=== PATIENT | male | born 1935 | race American Indian/Alaskan Native ===

== ENCOUNTER 2020-03-31 11:57 | Inpatient (IN) | payer MEDICARE, OTHER ==
[2020-03-31] MEDS ORDERED: ASPIRIN 325 MG TAB PO ONE (12:13)
[2020-03-31 12:44] LABS: Basophils # (Auto) 0.1 K/mm3 (0.0-0.1); Eosinophils # (Auto) 0.1 K/mm3 (0.0-0.4); Eosinophils % (Auto) 2.1 % (0.0-4.3); Hematocrit 34.4 % (35.5-45.6); Hemoglobin 11.3 gm/dl (11.8-15.2); Lymphocytes # (Auto) 1.1 K/mm3 (1.2-5.4); Lymphocytes % (Auto) 16.2 % (13.4-35.0); Mean Corpuscular HGB Conc 33 % (32-34); Mean Corpuscular Volume 88 fl (84-94); Monocytes # (Auto) 0.6 K/mm3 (0.0-0.8); Monocytes % (Auto) 8.1 % (0.0-7.3); Red Blood Count 3.89 M/mm3 (3.65-5.03); Red Cell Distribution Width 14.8 % (13.2-15.2)
--- NOTE | 2020-03-31 12:51 | XRay Report ---
CHEST 2 VIEWS INDICATION / CLINICAL INFORMATION: Chest Pain. COMPARISON: None available. FINDINGS: SUPPORT DEVICES: None. HEART / MEDIASTINUM: Normal heart size. Previous median sternotomy and CABG. LUNGS / PLEURA: Hazy right middle and right lower lobe parenchymal opacification. No pneumothorax. ADDITIONAL FINDINGS: No significant additional findings. IMPRESSION: 1. Hazy right middle and right lower lobe parenchymal opacification concerning for probable developin g infectious process. Signer Name: Jasper Lewis MD Signed: 03/31/2020 12:47 PM Workstation Name: [id number]
[2020-03-31 12:59] LABS: Platelet Count 108 K/mm3 (140-440)
[2020-03-31 13:06] LABS: BUN/Creatinine Ratio 18; Blood Urea Nitrogen 18 mg/dL (9-20); Hemolysis Index 5
[2020-03-31] MEDS ORDERED: FUROSEMIDE 20 MG/2 ML INJ IV ONE (16:38)
[2020-03-31] MEDS ORDERED: IPRATROPIUM/ALBUTEROL SULFATE 3 ML AMPUL.NEB IH ONE (16:38)
--- NOTE | 2020-03-31 16:38 | Emergency Department Report ---
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 Mayela Ortiz at [facility], for an exacerbation of congestive heart failure. The patient has been having shortness of breath that worsens with any exertion and he has been having some orthopnea. The dyspnea with exertion is even apparent in the patient's walk from the waiting room to his gurney in room 21. He has a past medical history of CHF, CVA, coronary artery disease with previous CABG. Patient complains of some intermittent chest pains and lower extremity swelling. He denies any fever, nausea, vomiting. No recent travel or sick contacts at home. ED Past Medical Hx - Past Medical History Previous Medical History?: Yes Hx CVA: Yes Hx Congestive Heart Failure: Yes - Surgical History Past Surgical History?: Yes Hx Open Heart Surgery: Yes ED Review of Systems ROS: Stated complaint: FLUID ON HEART/DIRECT ADMIT PER DR. HURST/TACHO Other details as noted in HPI Comment: All other systems reviewed and negative Constitutional: denies: chills, fever Eyes: denies: eye pain, vision change ENT: denies: ear pain, throat pain Respiratory: orthopnea, shortness of breath, SOB with exertion Cardiovascular: chest pain, edema Gastrointestinal: denies: abdominal pain, vomiting Genitourinary: denies: dysuria, discharge Musculoskeletal: denies: back pain, arthralgia Skin: denies: rash, lesions Neurological: denies: headache, weakness Physical Exam - Physical Exam Vital Signs: Vital Signs 03/31/20 12:12 Temperature 97.6 F Pulse Rate 95 H Respiratory 16 Rate Blood Pressure 125/68 O2 Sat by Pulse 99 Oximetry Physical Exam: GENERAL: The patient is well-developed well-nourished. HENT: Normocephalic. Atraumatic. Patient has moist mucous membranes. EYES: Extraocular motions are intact. NECK: Supple. Trachea is midline. CHEST/LUNGS: Coarse breath sounds. No tachypnea accessory muscle use. There is no respiratory distress noted. HEART/CARDIOVASCULAR: Regular. There is no tachycardia. There is no murmur. ABDOMEN: Abdomen is soft, nontender. Patient has normal bowel sounds. There is no abdominal distention. SKIN: 1-2+ pitting edema to the bilateral lower extremities from the knees distally. NEURO: The patient is awake, alert, and oriented. The patient is cooperative. Normal speech. MUSCULOSKELETAL: There is no tenderness or deformity. ED Course Vital Signs 03/31/20 12:12 Temperature 97.6 F Pulse Rate 95 H Respiratory 16 Rate Blood Pressure 125/68 O2 Sat by Pulse 99 Oximetry - Reevaluation(s) Reevaluation #1: 03/31/20 18:14 Lab Results 03/31/20 03/31/20 03/31/20 Range/Units 12:29 12:29 15:12 WBC 6.8 (4.5-11.0) K/mm3 RBC 3.89 (3.65-5.03) M/mm3 Hgb 11.3 L (11.8-15.2) gm/dl Hct 34.4 L (35.5-45.6) % MCV 88 (84-94) fl MCH 29 (28-32) pg MCHC 33 (32-34) % RDW 14.8 (13.2-15.2) % Plt Count 108 L (140-440) K/mm3 Lymph % (Auto) 16.2 (13.4-35.0) % [place] % (Auto) 8.1 H (0.0-7.3) % Eos % (Auto) 2.1 (0.0-4.3) % Baso % (Auto) 1.0 (0.0-1.8) % Lymph # (Auto) 1.1 L (1.2-5.4) K/mm3 [place] # (Auto) 0.6 (0.0-0.8) K/mm3 Eos # (Auto) 0.1 (0.0-0.4) K/mm3 Baso # (Auto) 0.1 (0.0-0.1) K/mm3 Seg Neutrophils % 72.6 H (40.0-70.0) % Seg Neutrophils # 5.0 (1.8-7.7) K/mm3 Sodium 144 (137-145) mmol/L Potassium 3.6 (3.6-5.0) mmol/L Chloride 106.8 (98-107) mmol/L Carbon Dioxide 23 (22-30) mmol/L Anion Gap 18 mmol/L BUN 18 (9-20) mg/dL Creatinine 1.0 (0.8-1.3) mg/dL Estimated GFR > 60 ml/min BUN/Creatinine Ratio 18 % Glucose 81 (75-100) mg/dL Calcium 9.0 (8.4-10.2) mg/dL Troponin T < 0.010 < 0.010 (0.00-0.029) ng/mL NT-Pro-B Natriuret Pep 7345 H (0-900) pg/mL ED Medical Decision Making - Lab Data Result diagrams: 03/31/20 12:29 03/31/20 12:29 - EKG Data -: EKG Interpreted by Me EKG shows normal: sinus rhythm (PVCs), axis, intervals, QRS complexes, ST-T waves (Flattening of T waves to the inferior and lateral leads) Rate: normal - EKG Data When compared to previous EKG there are: previous EKG unavailable Interpretation: other (Sinus rhythm with PVCs, normal axis, normal intervals, flattening of the T waves to the inferior and lateral leads) - Radiology Data Radiology results: report reviewed, image reviewed interpreted by me: Chest x-ray shows mild cardiomegaly. Sternotomy wire is apparent. There is some hazy bilateral lower lung opacities that could be fluid versus infiltrates. CHEST 2 VIEWS INDICATION / CLINICAL INFORMATION: Chest Pain. COMPARISON: None available. FINDINGS: SUPPORT DEVICES: None. HEART / MEDIASTINUM: Normal heart size. Previous median sternotomy and CABG. LUNGS / PLEURA: Hazy right middle and right lower lobe parenchymal opacification. No pneumothorax. ADDITIONAL FINDINGS: No significant additional findings. IMPRESSION: 1. Hazy right middle and right lower lobe parenchymal opacification concerning for probable developing infectious process. - Medical Decision Making Patient was sent in from his robotic maintenance technician office for a CHF exacerbation. Chest x-ray does show some haziness to the bilateral basilar lung herrera. Negative troponins x2 but he has an elevated BNP greater than 7000. EKG does not have any morphology consistent with ST elevation myocardial infarction. Vital signs have been reassuring thus far including being afebrile. The patient was given a breathing treatment and a dose of IV Lasix. He will be admitted to the hospital for further evaluation and treatment was accepted for admission by the hospitalist, Dr. Roberts. Critical Care Time: No Critical care attestation.: If time is entered above; I have spent that time in minutes in the direct care of this critically ill patient, excluding procedure time. ED Disposition Clinical Impression: CHF (congestive heart failure) Qualifiers: Heart failure type: systolic Heart failure chronicity: acute on chronic Wale lified Code(s): I50.23 - Acute on chronic systolic (congestive) heart failure Disposition: OP ADMIT IP TO THIS HOSP Is pt being admited?: Yes Condition: Fair Time of Disposition: 18:15 HEART Score - HEART Score History: Slightly suspicious EKG: Normal Age: > 65 Risk factors: > 3 risk factors or hx of atherosclerotic disease Troponin: Troponin T < 0.010 ng/mL (0.00-0.029) 03/31/20 15:12 Troponin: < normal limit HEART Score: 4 - Critical Actions Critical Actions: 4-6 pts:12-16.6% risk of adverse cardiac event. Should be admitted
--- NOTE | 2020-03-31 17:26 | History and Physical Report ---
History of Present Illness Chief complaint: I am short of breath History of present illness: 84 YO Male with CHF, CVA, CAD S/P CABG presents to ED for evaluation. Patient states that he has experienced shortness of breath over the past 1 week with persistently worsening symptoms over the same timeframe. Patient acknowledges orthopnea, paroxysmal nocturnal dyspnea, lower extremity edema, decreased exercise tolerance, subjective weight gain, as well as dyspnea with meals. Patient was seen and evaluated in his revenue cycle analyst office and was instructed to seek further care at [facility]. Patient transported to [facility] via private vehicle for further care and evaluation. Patient seen and evaluated in the emergency department. Lab and image studies reviewed. Patient found to have laboratory findings as well as clinical findings consistent with CHF decompensation. Patient initiated on CHF protocol and admitted to telemetry. Patient treated with supplemental oxygen, diuresis with Lasix therapy, and supportive care with mild improvement in symptoms. Cardiology team consulted in ED. Patient denies fever, chills, chest pain, palpitations, productive cough, skin rash, recent ill contacts, or known exposure to COVID-19. All medication listed at time of admission has been reconciled. No prior admission for review. Advanced care planning conducted in the emergency department. Past History Past Medical History: CAD, heart failure, stroke Past Surgical History: CABG Social history: single. denies: smoking, alcohol abuse, prescription drug abuse Family history: diabetes, hypertension Medications and Allergies Allergies Allergy/AdvReac Type Severity Reaction Status Date / Time No Known Allergies Allergy Unverified 03/31/20 12:11 Review of Systems Constitutional: weight gain, no fever, no chills Ears, nose, mouth and throat: no ear pain, no ear discharge, no tinnitis, no dec reased hearing, no nasal congestion Cardiovascular: orthopnea, edema, shortness of breath, dyspnea on exertion, paroxysmal nocturnal dyspnea, leg edema, decreased exercise tolerance, no chest pain, no palpitations, no rapid/irregular heart beat Respiratory: no cough, no cough with sputum, no hemoptysis, no dyspnea on exertion Gastrointestinal: no nausea, no vomiting, no constipation, no change in bowel habits, no hematemesis Genitourinary Male: no hematuria, no flank pain, no urinary frequency, no urinary hesitancy, no nocturia Rectal: no pain, no incontinence, no bleeding Musculoskeletal: no neck stiffness, no shooting arm pain, no arm numbn ess/tingling, no low back pain, no leg numbness/tingling Integumentary: no rash, no pruritis, no sores, no wounds, no jaundice, no boils Neurological: no head injury, no paralysis, no weakness, no numbness, no tingling, no seizures, no syncope Psychiatric: no anxiety, no memory loss, no change in sleep habits, no hypersomnia, no disorientation Endocrine: no cold intolerance, no excessive thirst, no polyuria, no nocturia, no excessive sweating, no flushing Hematologic/Lymphatic: no easy bruising, no lymphedema Allergic/Immunologic: no urticaria, no allergic rhinitis, no wheezing, no anaphylaxis, no angioedema Exam - Constitutional Vitals: Temp Pulse Resp BP Pulse Ox 97.6 F 95 H 16 125/68 99 03/31/20 12:12 03/31/20 12:12 03/31/20 12:12 03/31/20 12:12 03/31/20 12:12 General appearance: Present: mild distress - EENT Eyes: Present: PERRL ENT: hearing intact, clear oral mucosa - Neck Neck: Present: supple, normal ROM - Respiratory Respiratory effort: normal Respiratory: bilateral: diminished, rhonchi - Cardiovascular Heart Sounds: Present: S1 & S2. Absent: rub, click - Extremities Extremities: pulses symmetrical Extremity abnormal: edema Peripheral Pulses: within normal limits - Abdominal General gastrointestinal: Present: soft, non-tender, non-distended, normal bowel sounds Male genitourinary: Present: normal - Integumentary Integumentary: Present: clear, warm, dry - Musculoskeletal Musculoskeletal: gait normal, strength equal bilaterally - Psychiatric Psychiatric: appropriate mood/affect, intact judgment & insight - Neurologic Neurologic: CNII-XII intact, moves all extremities HEART Score - HEART Score EKG: Normal Age: > 65 Risk factors: > 3 risk factors or hx of atherosclerotic disease Troponin: Troponin T < 0.010 ng/mL (0.00-0.029) 03/31/20 15:12 Troponin: < normal limit - Critical Actions Critical Actions: 4-6 pts:12-16.6% risk of adverse cardiac event. Should be admitted Results - Labs CBC & Chem 7: 03/31/20 12:29 03/31/20 12:29 Labs: Abnormal lab results 03/31/20 03/31/20 Range/Units 12:29 12:29 Hgb 11.3 L (11.8-15.2) gm/dl Hct 34.4 L (35.5-45.6) % Plt Count 108 L (140-440) K/mm3 [place] % (Auto) 8.1 H (0.0-7.3) % Lymph # (Auto) 1.1 L (1.2-5.4) K/mm3 Seg Neutrophils % 72.6 H (40.0-70.0) % NT-Pro-B Natriuret Pep 7345 H (0-900) pg/mL Assessment and Plan - Patient Problems (1) CHF (congestive heart failure) Current Visit: Yes Status: Acute Qualifiers: Heart failure type: systolic Heart failure chronicity: acute on chronic Qualified Code(s): I50.23 - Acute on chronic systolic (congestive) heart failure Plan to address problem: CHF protocol: Admit to telemetry, echocardiogram ordered at time of admission, BNP, pulse oximetry, supplemental oxygen, blood pressure control, afterload reduction, strict I's/O, monitor urine output every shift, daily weight, monitor fluid balance. Diuresis with Lasix therapy. Thyroid panel, magnesium level. (2) CAD (coronary artery disease) Current Visit: Yes Status: Acute Qualifiers: Associated angina: without angina Plan to address problem: Supportive care, risk factor reduction, blood pressure control. (3) Cerebral atherosclerosis Current Visit: Yes Status: Acute Plan to address problem: Supportive care, continue medical management. (4) DVT prophylaxis Current Visit: Yes Status: Acute Plan to address problem: SCD to bilateral lower extremities while in bed, patient is ambulatory (5) Advance care planning Current Visit: Yes Status: Acute Plan to address problem: Disease education conducted, patient is full code, prognosis discussed, patient knowledges understanding and agreement with care plan, +30 minutes.
[2020-03-31] MEDS ORDERED: ONDANSETRON 4 MG/2 ML INJ IV PRN (17:27)
[2020-03-31] MEDS ORDERED: ALBUTEROL 2.5 MG/3 ML NEBU IH PRN (17:27)
[2020-03-31] MEDS ORDERED: ACETAMINOPHEN 325 MG TAB PO PRN (17:27)
[2020-03-31] MEDS ORDERED: FUROSEMIDE 20 MG/2 ML INJ ONE (18:12)
[2020-03-31] MEDS: FUROSEMIDE 20 MG/2 ML INJ IV SCH (18:30)
[2020-03-31 19:54] LABS: Free T4 (Free Thyroxine) 1.8 ng/dL (0.76-1.46)
[2020-04-01 06:08] LABS: Blood Urea Nitrogen 16 mg/dL (9-20); Calcium 8.7 mg/dL (8.4-10.2); Hemolysis Index 5
[2020-04-01 06:23] LABS: BUN/Creatinine Ratio 23
[2020-04-01] MEDS: FUROSEMIDE 20 MG/2 ML INJ IV SCH ×2 (06:45→17:34)
--- NOTE | 2020-04-01 10:19 | Progress Note ---
Assessment and Plan (1) CHF (congestive heart failure) Current Visit: Yes Status: Acute Qualifiers: Heart failure type: systolic Heart failure chronicity: acute on chronic Qualified Code(s): I50.23 - Acute on chronic systolic (congestive) heart failure Plan to address problem: continue cardio-protective measures-per CHF protocol supplemental oxygen, monitor bp control, strict I's/O, daily weight, ASA, and Diuresis with Lasix Thyroid panel, magnesium level. ECHO-f/u with result newspaper editor consult (2) CAD (coronary artery disease) Current Visit: Yes Status: Acute Qualifiers: Associated angina: without angina Plan to address problem: Supportive care, risk factor reduction, blood pressure control. (3) Cerebral atherosclerosis Current Visit: Yes Status: Acute Plan to address problem: Supportive care, continue medical management. (4) DVT prophylaxis Current Visit: Yes Status: Acute Plan to address problem: SCD to bilateral lower extremities while in bed, patient is ambulatory (5) Advance care planning Current Visit: Yes Status: Acute Plan to address problem: Disease education conducted, patient is full code, prognosis discussed, patient knowledges understanding and agreement with care plan, +30 minutes. - Patient Problems (1) Hypokalemia Current Visit: Yes Status: Acute Plan to address problem: Replete potassium 3.1 today daily potassium supplement-patient on lasix Monitor potassium level and replete if needed Mag level Subjective Date of service: 04/01/20 Principal diagnosis: CHF Interval history: Patient seen at bedside and was eating lunch. He denies chest pain and shortness of breath. Noted bilateral leg edema Reviewed lab, mar, and v/s. patient has low potassium-replaced patient on duiuretic with lasxi Objective - Constitutional Vitals: Vital Signs - 12hr 03/31/20 03/31/20 03/31/20 22:21 22:31 22:41 Temperature Pulse Rate 106 H 105 H 103 H Respiratory 12 13 25 H Rate Blood Pressure 124/65 124/65 124/65 O2 Sat by Pulse 100 100 100 Oximetry 03/31/20 04/01/20 04/01/20 23:26 01:35 01:43 Temperature 97.6 F Pulse Rate 109 H 93 H Respiratory 22 22 Rate Blood Pressure 128/75 O2 Sat by Pulse 100 Oximetry 04/01/20 04/01/20 04:31 08:33 Temperature 98.3 F Pulse Rate 89 Respiratory 20 20 Rate Blood Pressure 109/72 O2 Sat by Pulse 96 Oximetry General appearance: Present: no acute distress, well-nourished - EENT Eyes: PERRL, EOM intact ENT: hearing intact, clear oral mucosa Ears: bilateral: normal - Neck Neck: supple, normal ROM - Respiratory Respiratory effort: normal Respiratory: bilateral: CTA - Breasts Breasts: normal - Cardiovascular Heart rate: 89 Rhythm: regular Heart Sounds: Present: S1 & S2. Absent: gallop, rub Extremities: pulses intact, normal color, Full ROM, abnormal (Bilateral leg edema) - Gastrointestinal General gastrointestinal: Present: soft, non-tender, non-distended, normal bowel sounds - Genitourinary Male genitourinary: normal - Integumentary Integumentary: clear, warm, dry - Musculoskeletal Musculoskeletal: 1, strength equal bilaterally - Neurologic Neurologic: moves all extremities - Psychiatric Psychiatric: memory intact, appropriate mood/affect, intact judgment & insight - Labs CBC & Chem 7: 03/31/20 12:29 04/01/20 05:11 Labs: Abnormal lab results 03/31/20 03/31/20 03/31/20 Range/Units 12:29 12:29 18:57 Hgb 11.3 L (11.8-15.2) gm/dl Hct 34.4 L (35.5-45.6) % Plt Count 108 L (140-440) K/mm3 [place] % (Auto) 8.1 H (0.0-7.3) % Lymph # (Auto) 1.1 L (1.2-5.4) K/mm3 Seg Neutrophils % 72.6 H (40.0-70.0) % Potassium (3.6-5.0) mmol/L Creatinine (0.8-1.3) mg/dL NT-Pro-B Natriuret Pep 7345 H (0-900) pg/mL Free T4 1.80 H (0.76-1.46) ng/dL 04/01/20 Range/Units 05:11 Hgb (11.8-15.2) gm/dl Hct (35.5-45.6) % Plt Count (140-440) K/mm3 [place] % (Auto) (0.0-7.3) % Lymph # (Auto) (1.2-5.4) K/mm3 Seg Neutrophils % (40.0-70.0) % Potassium 3.1 L (3.6-5.0) mmol/L Creatinine 0.7 L (0.8-1.3) mg/dL NT-Pro-B Natriuret Pep (0-900) pg/mL Free T4 (0.76-1.46) ng/dL HEART Score - HEART Score EKG: Normal Age: > 65 Risk factors: > 3 risk factors or hx of atherosclerotic disease Troponin: Troponin T < 0.010 ng/mL (0.00-0.029) 03/31/20 18:57 Troponin: < normal limit - Critical Actions Critical Actions: 4-6 pts:12-16.6% risk of adverse cardiac event. Should be admitted
[2020-04-01] MEDS ORDERED: POTASSIUM CHLORIDE ER 20 MEQ TAB PO ONE (11:00)
--- NOTE | 2020-04-01 17:02 | Consultation ---
History of Present Illness Consult date: 04/01/20 Requesting physician: FROILAN NEWTON Consult reason: congestive heart failure History of present illness: Pt is an 84 y.o. AA male who is followed in our office by Dr. Ortiz. He was sent by Dr. Ortiz for further eval of suspected HF exacerbation. Pt has a known hx of ICMP and chronic HFrEF (currently on Torsemide 20mg daily as an outpatient). Of note, pt is a poor historian due to residual deficits secondary to CVA, and thus some HPI obtained from chart. Pt reports SOB/DURAND and "issues with urination." He also reports orthopnea and BLE swelling. No additional cardiac complaints. No recent fever/chills. BNP elevated at admission. CXR reveals mild pulmonary edema and RLL opacification. Echo 03/28/2020 - EF 15%, grade III diastolic dysfxn, severe MR, severe TR. Past History Past Medical History: CAD, DVT, heart failure, hypertension, hyperlipidemia, hypothyroidism, stroke Past Surgical History: CABG Social history: denies: smoking, alcohol abuse Family history: hypertension Medications and Allergies Allergies Allergy/AdvReac Type Severity Reaction Status Date / Time lactose AdvReac Dizziness Verified 04/01/20 04:27 Home Medications Medication Instructions Recorded Confirmed Last Taken Type Apixaban [Eliquis] 5 mg PO BID 04/01/20 04/01/20 Unknown History AtorvaSTATin [Lipitor] 40 mg PO QHS 04/01/20 04/01/20 Unknown History Doxazosin Mesylate [Cardura] 8 mg PO DAILY 04/01/20 04/01/20 Unknown History Metoprolol Xl [Metoprolol 50 mg PO QDAY 04/01/20 04/01/20 Unknown History SUCCINATE ER TAB] lisinopriL [Zestril TAB] 40 mg PO QDAY 04/01/20 04/01/20 Unknown History Active Meds: Active Medications Acetaminophen (Tylenol) 650 mg PO Q4H PRN PRN Reason: Pain MILD(1-3)/Fever >100.5/RAMIREZ Last Admin: 04/01/20 15:10 Dose: 650 mg Documented by: Albuterol (Proventil) 2.5 mg IH Q4HRT PRN PRN Reason: Shortness Of Breath Furosemide (Lasix) 20 mg IV BID@0600,1800 ERIC Last Admin: 04/01/20 06:45 Dose: 20 mg Documented by: Ondansetron HCl (Zofran) 4 mg IV Q8H PRN PRN Reason: Nausea And Vomiting Potassium Chloride (K-Dur) 20 meq PO QDAY [facility] Sodium Chloride (Sodium Chloride Flush Syringe 10 Ml) 10 ml IV BID [facility] Last Admin: 04/01/20 11:28 Dose: 10 ml Documented by: Sodium Chloride (Sodium Chloride Flush Syringe 10 Ml) 10 ml IV PRN PRN PRN Reason: LINE FLUSH Review of Systems Constitutional: no fever, no chills Ears, nose, mouth and throat: no nasal congestion, no sore throat Cardiovascular: orthopnea, edema, shortness of breath, dyspnea on exertion, no chest pain, no syncope, no lightheadedness Respiratory: shortness of breath, dyspnea on exertion, no cough Gastrointestinal: no abdominal pain, no nausea, no vomiting Genitourinary Male: dysuria, no flank pain Musculoskeletal: no neck stiffness, no neck pain, no myalgias Integumentary: no rash, no wounds Neurological: no paralysis, no weakness, no parathesias, no numbness, no tingling, no seizures, no syncope, no vertigo, no headaches Endocrine: no cold intolerance, no heat intolerance, no polydipsia, no polyuria Hematologic/Lymphatic: no easy bruising, no easy bleeding Allergic/Immunologic: no urticaria Physical Examination Last Vital Signs Temp 98.2 F 04/01/20 11:27 Pulse 91 H 04/01/20 11:27 Resp 18 04/01/20 11:27 BP 100/54 04/01/20 11:27 Pulse Ox 99 04/01/20 11:27 General appearance: no acute distress HEENT: Positive: EOMI, Normocephaly, Mucus Membranes Moist Neck: Positive: neck supple, trachea midline Cardiac: Positive: Reg Rate and Rhythm, S1/S2 Lungs: Positive: clear to auscultation Neuro: Positive: Grossly Intact Abdomen: Positive: Soft, Active Bowel Sounds. Negative: Tender Skin: Negative: Rash Musculoskeletal: No Pain Extremities: Present: upper extr. pulses, lower extr. pulses, +2 Edema (BLE) Results 03/31/20 12:29 04/01/20 05:11 Comprehensive Metabolic Panel 04/01/20 Range/Units 05:11 Sodium 144 (137-145) mmol/L Potassium 3.1 L (3.6-5.0) mmol/L Chloride 106.5 (98-107) mmol/L Carbon Dioxide 24 (22-30) mmol/L BUN 16 (9-20) mg/dL Creatinine 0.7 L (0.8-1.3) mg/dL Glucose 97 (75-100) mg/dL Calcium 8.7 (8.4-10.2) mg/dL - Imaging and Cardiology Echo: report reviewed (03/28/2020 - EF 15%, grade III diastolic dysfxn, severe MR, severe TR) EKG: report reviewed, image reviewed - EKG Interpretation EKG: no acute changes EKG interpretations - Telemetry EKG Rhythm: Sinus Rhythm - EKG Sinus rhythms and dysrhythmias: sinus rhythm Ventricular dysrhythmias: ventricular premature com Repolarization changes or abnormalities: nonspecific abnormality, ST segment, and/or T wave Assessment and Plan Cont IV Lasix 20mg BID with strict I/Os. Closely monitor renal indices. K repletion underway. Hold home Toprol and Lisinopril for now in the setting of borderline BPs. Resume ASA and statin. Will revisit possible ICD as an outpatient. Pt seen in conjunction with Dr. Mcbride, who agrees with the assessment and plan of care. - Patient Problems (1) Acute on chronic HFrEF (heart failure with reduced ejection fraction) Current Visit: Yes Status: Acute (2) Hypokalemia Current Visit: Yes Status: Acute (3) Ischemic cardiomyopathy Current Visit: Yes Status: Chronic (4) Severe mitral regurgitation Current Visit: Yes Status: Chronic (5) Severe tricuspid regurgitation Current Visit: Yes Status: Chronic (6) CAD (coronary artery disease) Current Visit: Yes Status: Chronic Qualifiers: Associated angina: without angina (7) S/P CABG (coronary artery bypass graft) Current Visit: Yes Status: Chronic (8) HTN (hypertension) Current Visit: Yes Status: Chronic Qualifiers: Hypertension type: essential hypertension Qualified Code(s): I10 - Essential (primary) hypertension (9) HLD (hyperlipidemia) Current Visit: Yes Status: Chronic Qualifiers: Hyperlipidemia type: mixed hyperlipidemia Qualified Code(s): E78.2 - Mixed hyperlipidemia (10) Hypothyroidism Current Visit: Yes Status: Chronic (11) H/O: CVA (cerebrovascular accident) Current Visit: Yes Status: Chronic (12) H/O deep venous thrombosis Current Visit: Yes Status: Chronic Plan to address problem: on Ramos
[2020-04-01] MEDS: APIXABAN 5 MG TAB PO SCH (21:57)
[2020-04-01 22:48] LABS: Bilirubin,Urine NEG (Negative); Blood,Urine LG (Negative); Color,Urine Straw (Yellow); Mucus,Urine FEW /HPF; Protein,Urine <15 mg/dL mg/dL (Negative); Urobilinogen,Urine < 2.0 mg/dL (<2.0)
[2020-04-01 22:53] LABS: RBC,Urine > 182.0 /HPF (0.0-6.0)
[2020-04-02] MEDS: cefTRIAXone/NS 1 GM/50 ML 1 GM/50 ML BAG IV SCH ×2 (01:36→09:25)
[2020-04-02] MEDS: FUROSEMIDE 20 MG/2 ML INJ IV SCH ×2 (06:37→17:23)
[2020-04-02] MEDS: POTASSIUM CHLORIDE ER 20 MEQ TAB PO SCH (09:25)
[2020-04-02] MEDS: APIXABAN 5 MG TAB PO SCH ×2 (09:25→22:41)
[2020-04-02] MEDS: ASPIRIN 81 MG TAB CHEW PO SCH (09:25)
--- NOTE | 2020-04-02 09:45 | Progress Note ---
Assessment and Plan (1) CHF (congestive heart failure) Current Visit: Yes Status: Acute Qualifiers: Heart failure type: systolic Heart failure chronicity: acute on chronic Qualified Code(s): I50.23 - Acute on chronic systolic (congestive) heart failure Plan to address problem: continue cardio-protective measures-per CHF protocol ASA, statin, strict I's/O, daily weight, and Diuresis ECHO-f/u with result steam presser consult-input appreciated Hold BB and lisipril due to BP level (2) CAD (coronary artery disease) Current Visit: Yes Status: Acute Qualifiers: Associated angina: without angina Plan to address problem: Supportive care, risk factor reduction, blood pressure control. Continue statin (3) Cerebral atherosclerosis Current Visit: Yes Status: Acute Plan to address problem: Supportive care, continue medical management. (4) DVT prophylaxis Current Visit: Yes Status: Acute Plan to address problem: SCD to bilateral lower extremities while in bed, patient is ambulatory (5) Advance care planning Current Visit: Yes Status: Acute Plan to address problem: Disease education conducted, patient is full code, prognosis discussed, patient knowledges understanding and agreement with care plan, +30 minutes. - Patient Problems (1) Hypokalemia Current Visit: Yes Status: Acute Plan to address problem: Replete potassium 3.1 today daily potassium supplement-patient on lasix Monitor potassium level and replete if needed am lab bmp and Mag level (2) UTI (urinary tract infection) Current Visit: Yes Status: Acute Plan to address problem: Continue IV empiric antibiotics Urine culture-f/u with result Subjective Date of service: 04/02/20 Principal diagnosis: CHF Interval history: Patient seen at bedside He denies chest pain and shortness of breath. Has bilateral leg edema Reviewed lab, mar, and v/s. patient has low potassium-replaced patient on duiuretic with lasxi Reviwed steam presser note-advised to Cont IV Lasix 20mg BID with strict I/Os. Hold home Toprol and Lisinopril Continue ASA and statin. CXR reveals mild pulmonary edema and RLL opacification. Echo 03/28/2020 - EF 15%, grade III diastolic dysfxn, severe MR, severe TR. US shows elevated WBC-pt started IV abx D/c pending steam presser clearance Objective - Constitutional Vitals: Vital Signs - 12hr 1004/01/20 04/02/20 22:00 23:35 01:00 Temperature 97.9 F Pulse Rate 99 H 120 H Respiratory 18 18 Rate Blood Pressure 103/59 O2 Sat by Pulse 100 Oximetry 04/02/20 04/02/20 04/02/20 03:57 07:42 08:12 Temperature 98.7 F 97.6 F Pulse Rate 101 H 113 H Respiratory 18 18 18 Rate Blood Pressure 126/81 125/83 O2 Sat by Pulse 97 100 Oximetry General appearance: Present: no acute distress, well-nourished - EENT Eyes: PERRL, EOM intact ENT: hearing intact, clear oral mucosa Ears: bilateral: normal - Neck Neck: supple, normal ROM - Respiratory Respiratory effort: normal Respiratory: bilateral: CTA - Breasts Breasts: normal - Cardiovascular Rhythm: regular Heart Sounds: Present: S1 & S2. Absent: gallop, rub Extremities: pulses intact, No edema, normal color, Full ROM Extremity abnormal: edema (Bilateral leg edema) - Gastrointestinal General gastrointestinal: Present: soft, non-tender, non-distended, normal bowel sounds - Genitourinary Male genitourinary: normal - Integumentary Integumentary: clear, warm, dry - Musculoskeletal Musculoskeletal: 1, strength equal bilaterally - Neurologic Neurologic: moves all extremities - Psychiatric Psychiatric: memory intact, appropriate mood/affect, intact judgment & insight - Allied health notes Allied health notes reviewed: nursing - Labs CBC & Chem 7: 03/31/20 12:29 04/02/20 10:03 Labs: Abnormal lab results 04/01/20 Range/Units 22:00 Urine WBC (Auto) 86.0 H (0.0-6.0) /HPF HEART Score - HEART Score EKG: Normal Age: > 65 Risk factors: > 3 risk factors or hx of atherosclerotic disease Troponin: Troponin T < 0.010 ng/mL (0.00-0.029) 03/31/20 18:57 Troponin: < normal limit - Critical Actions Critical Actions: 4-6 pts:12-16.6% risk of adverse cardiac event. Should be admitted
[2020-04-02 10:45] LABS: Blood Urea Nitrogen 12 mg/dL (9-20); Hemolysis Index 19
[2020-04-02 10:49] LABS: BUN/Creatinine Ratio 17
[2020-04-02] MEDS: METOPROLOL SUCCINATE XL 50 MG TAB PO SCH (16:08)
--- NOTE | 2020-04-02 19:39 | Progress Note ---
Assessment and Plan Mgmt of urinary issues per Primary. Continue IV Lasix 20mg BID with strict I/Os. Closely monitor renal indices. Will resume home Toprol. Continue to hold Lisinopril for now in the setting of borderline BPs. Tele monitoring. Continue other present cardiac mgmt. Plan to revisit possible ICD as an outpatient. Pt seen in conjunction with Dr. Mcbride, who agrees with the assessment and plan of care. - Patient Problems (1) Acute on chronic HFrEF (heart failure with reduced ejection fraction) Current Visit: Yes Status: Acute (2) Paroxysmal SVT (supraventricular tachycardia) Current Visit: Yes Status: Acute (3) Ischemic cardiomyopathy Current Visit: Yes Status: Chronic (4) Severe mitral regurgitation Current Visit: Yes Status: Chronic (5) Severe tricuspid regurgitation Current Visit: Yes Status: Chronic (6) CAD (coronary artery disease) Current Visit: Yes Status: Chronic Qualifiers: Associated angina: without angina (7) S/P CABG (coronary artery bypass graft) Current Visit: Yes Status: Chronic (8) HTN (hypertension) Current Visit: Yes Status: Chronic Qualifiers: Hypertension type: essential hypertension Qualified Code(s): I10 - Essential (primary) hypertension (9) HLD (hyperlipidemia) Current Visit: Yes Status: Chronic Qualifiers: Hyperlipidemia type: mixed hyperlipidemia Qualified Code(s): E78.2 - Mixed hyperlipidemia (10) Hypothyroidism Current Visit: Yes Status: Chronic (11) H/O: CVA (cerebrovascular accident) Current Visit: Yes Status: Chronic (12) H/O deep venous thrombosis Current Visit: Yes Status: Chronic Plan to address problem: on Eliquis Subjective Date of service: 04/02/20 Principal diagnosis: A/C HFrEF Interval history: Pt resting comfortably in bed upon exam. He states he is feeling better; however, c/o pain/burning sensation with urination. No cardiac complaints. Tele reviewed - SR w/brief run of SVT noted. Pt asymptomatic. Objective Last Vital Signs Temp 98.5 F 04/02/20 16:02 Pulse 110 H 04/02/20 17:00 Resp 18 04/02/20 16:02 BP 137/85 04/02/20 16:02 Pulse Ox 90 04/02/20 16:02 - Physical Examination General: No Apparent Distress HEENT: Positive: EOMI, Normocephaly, Mucus Membranes Moist Neck: Positive: neck supple, trachea midline Cardiac: Positive: Reg Rate and Rhythm, S1/S2 Lungs: Positive: Decreased Breath Sounds Neuro: Positive: Grossly Intact Abdomen: Positive: Soft, Active Bowel Sounds. Negative: Tender Skin: Negative: Rash Musculoskeletal: No Pain Extremities: Present: upper extr. pulses, lower extr. pulses, +2 Edema (BLE) - Labs and Meds Comprehensive Metabolic Panel 04/02/20 Range/Units 10:03 Sodium 142 (137-145) mmol/L Potassium 3.7 (3.6-5.0) mmol/L Chloride 103.8 (98-107) mmol/L Carbon Dioxide 26 (22-30) mmol/L BUN 12 (9-20) mg/dL Creatinine 0.7 L (0.8-1.3) mg/dL Glucose 92 (75-100) mg/dL Calcium 9.0 (8.4-10.2) mg/dL - Imaging and Cardiology EKG: report reviewed, image reviewed Echo: report reviewed (03/28/2020 - EF 15%, grade III diastolic dysfxn, severe MR, severe TR) - Telemetry EKG Rhythm: Sinus Rhythm - EKG Sinus rhythms and dysrhythmias: sinus rhythm Ventricular dysrhythmias: ventricular premature com Repolarization changes or abnormalities: nonspecific abnormality, ST segment, and/or T wave
[2020-04-03 05:44] LABS: BUN/Creatinine Ratio 18; Blood Urea Nitrogen 14 mg/dL (9-20); Calcium 8.8 mg/dL (8.4-10.2); Hemolysis Index 8
[2020-04-03] MEDS: FUROSEMIDE 20 MG/2 ML INJ IV SCH ×2 (06:24→18:22)
[2020-04-03] MEDS: POTASSIUM CHLORIDE ER 20 MEQ TAB PO SCH (09:14)
[2020-04-03] MEDS: cefTRIAXone/NS 1 GM/50 ML 1 GM/50 ML BAG IV SCH (09:14)
[2020-04-03] MEDS: APIXABAN 5 MG TAB PO SCH ×2 (09:14→22:22)
[2020-04-03] MEDS: METOPROLOL SUCCINATE XL 50 MG TAB PO SCH (09:14)
[2020-04-03] MEDS: ASPIRIN 81 MG TAB CHEW PO SCH (09:15)
[2020-04-03] MEDS: DIGOXIN 0.5 MG/2 ML INJ IV SCH ×2 (12:52→18:22)
--- NOTE | 2020-04-03 13:38 | Progress Note ---
Assessment and Plan Continue tele monitoring. Will give IV digoxin x 4. Continue Toprol. Will increase BB as tolerated. Home Lisinopril held for now in the setting of borderline BPs - will resume as BP permits. Continue IV Lasix 20mg BID with strict I/Os. Closely monitor renal indices. Continue other present cardiac mgmt. Plan to revisit possible ICD implantation as an outpatient. Pt seen in conjunction with Dr. Trejo, who agrees with the assessment and plan of care. - Patient Problems (1) Acute on chronic HFrEF (heart failure with reduced ejection fraction) Current Visit: Yes Status: Acute (2) Paroxysmal SVT (supraventricular tachycardia) Current Visit: Yes Status: Acute Plan to address problem: Asymptomatic (3) Ischemic cardiomyopathy Current Visit: Yes Status: Chronic (4) Severe mitral regurgitation Current Visit: Yes Status: Chronic (5) Severe tricuspid regurgitation Current Visit: Yes Status: Chronic (6) CAD (coronary artery disease) Current Visit: Yes Status: Chronic Qualifiers: Associated angina: without angina (7) S/P CABG (coronary artery bypass graft) Current Visit: Yes Status: Chronic (8) HTN (hypertension) Current Visit: Yes Status: Chronic Qualifiers: Hypertension type: essential hypertension Qualified Code(s): I10 - Essential (primary) hypertension (9) HLD (hyperlipidemia) Current Visit: Yes Status: Chronic Qualifiers: Hyperlipidemia type: mixed hyperlipidemia Qualified Code(s): E78.2 - Mixed hyperlipidemia (10) Hypothyroidism Current Visit: Yes Status: Chronic (11) Goiter Current Visit: Yes Status: Suspected Plan to address problem: Plan for surgical intervention as an outpatient (12) H/O: CVA (cerebrovascular accident) Current Visit: Yes Status: Chronic (13) H/O deep venous thrombosis Current Visit: Yes Status: Chronic Plan to address problem: on Eliquis Subjective Date of service: 04/03/20 Principal diagnosis: A/C HFrEF Interval history: Pt resting comfortably in bed upon exam. He is feeling well today. No cardiac complaints overnight or this AM. Tele reviewed - SR 90s - low 100s, pSVT. Objective Last Vital Signs Temp 97.6 F 04/03/20 11:30 Pulse 99 H 04/03/20 12:52 Resp 20 04/03/20 11:30 BP 108/73 04/03/20 11:30 Pulse Ox 96 04/03/20 11:30 - Physical Examination General: No Apparent Distress HEENT: Positive: EOMI, Normocephaly, Mucus Membranes Moist Neck: Positive: neck supple, trachea midline Cardiac: Positive: Reg Rate and Rhythm, S1/S2 Lungs: Positive: clear to auscultation Neuro: Positive: Grossly Intact Abdomen: Positive: Soft, Active Bowel Sounds. Negative: Tender Skin: Negative: Rash Musculoskeletal: No Pain Extremities: Present: upper extr. pulses, lower extr. pulses, +1 Edema (BLE) - Labs and Meds Comprehensive Metabolic Panel 04/03/20 Range/Units 04:37 Sodium 143 (137-145) mmol/L Potassium 3.6 (3.6-5.0) mmol/L Chloride 103.8 (98-107) mmol/L Carbon Dioxide 27 (22-30) mmol/L BUN 14 (9-20) mg/dL Creatinine 0.8 (0.8-1.3) mg/dL Glucose 86 (75-100) mg/dL Calcium 8.8 (8.4-10.2) mg/dL - Imaging and Cardiology EKG: report reviewed, image reviewed Echo: report reviewed (03/28/2020 - EF 15%, grade III diastolic dysfxn, severe MR, severe TR) - Telemetry EKG Rhythm: Sinus Rhythm - EKG Sinus rhythms and dysrhythmias: sinus rhythm Ventricular dysrhythmias: ventricular premature com Repolarization changes or abnormalities: nonspecific abnormality, ST segment, and/or T wave
--- NOTE | 2020-04-03 15:31 | Progress Note ---
Assessment and Plan - Patient Problems (1) Acute on chronic HFrEF (heart failure with reduced ejection fraction) Current Visit: Yes Status: Acute Plan to address problem: 03/28/2020 echo shows EF 15%, grade III diastolic dysfxn, severe MR, severe TR. 03/31 proBNP: [id number] Cardiology consulted BB, diuretics Strict I&O Daily weights 04/03 cardiology plans to load with digoxin and start digoxin daily Per cardiology: Plan to revisit possible AICD evaluation as an outpatient (2) UTI (urinary tract infection) Current Visit: Yes Status: Acute Plan to address problem: 04/01 UA shows leukocyte esterase and pyuria 04/01 urine culture with mixed skin glenn Antibiotic therapy Trend CBC (3) HTN (hypertension) Current Visit: Yes Status: Chronic Qualifiers: Hypertension type: essential hypertension Qualified Code(s): I10 - E ssential (primary) hypertension Plan to address problem: Continue Toprol, Lasix, hold home lisinopril for now in the setting of borderline BPs Blood pressure monitor per protocol (4) Goiter Current Visit: Yes Status: Suspected Plan to address problem: Patient has a goiter on examination 03/31 TSH 0.4, T4 1.8 Follow-up outpatient for evaluation (5) Cerebral atherosclerosis Current Visit: Yes Status: Chronic Plan to address problem: Continue ASA and statin therapy Supportive care (6) CAD (coronary artery disease) Current Visit: Yes Status: Chronic Qualifiers: Associated angina: without angina Plan to address problem: Continue statin therapy (7) H/O deep venous thrombosis Current Visit: Yes Status: Chronic Plan to address problem: Continue Eliquis (8) DVT prophylaxis Current Visit: Yes Status: Acute Plan to address problem: SCD to bilateral lower extremities while in bed Patient is on systemic coagulation with Eliquis and aspirin History Interval history: 84 YO Male with CHF, CVA, CAD S/P CABG, DVT presented on 03/31 for shortness of breath over the past 1 week with persistently worsening symptoms over the same timeframe, orthopnea, paroxysmal nocturnal dyspnea, lower extremity edema, decreased exercise tolerance, subjective weight gain, as well as dyspnea with meals. Patient found to have laboratory findings as well as clinical findings consistent with CHF decompensation. Cardiology team consulted in ED. today cardiology plans to start digoxin on the patient. No acute events reported overnight. Vital signs and lab values are stable. 04/01: Hypokalemia 04/02: abx initiated 04/03: Initiated digoxin with loading. Hospitalist Physical - Constitutional Vitals: Temp Pulse Resp BP Pulse Ox 97.6 F 99 H 20 108/73 96 04/03/20 11:30 04/03/20 12:52 04/03/20 11:30 04/03/20 11:30 04/03/20 11:30 General appearance: Present: no acute distress, well-nourished - EENT Eyes: Present: PERRL, EOM intact ENT: hearing decreased, poor dentition - Neck Neck: Present: normal ROM, enlarged thyroid - Respiratory Respiratory effort: normal Respiratory: bilateral: CTA - Cardiovascular Rhythm: regular Heart Sounds: Present: S1 & S2. Absent: systolic murmur, diastolic murmur - Extremities Extremities: no ischemia, pulses intact, pulses symmetrical, No edema, normal temperature, normal color, Full ROM Peripheral Pulses: within normal limits - Abdominal General gastrointestinal: soft, non-tender, non-distended, normal bowel sounds - Integumentary Integumentary: Present: clear, warm, dry - Psychiatric Psychiatric: appropriate mood/affect, cooperative - Neurologic Neurologic: CNII-XII intact, no focal deficits, moves all extremities - Allied Health Allied health notes reviewed: nursing HEART Score - HEART Score EKG: Normal Age: > 65 Risk factors: > 3 risk factors or hx of atherosclerotic disease Troponin: Troponin T < 0.010 ng/mL (0.00-0.029) 03/31/20 18:57 Troponin: < normal limit - Critical Actions Critical Actions: 4-6 pts:12-16.6% risk of adverse cardiac event. Should be admitted Results - Labs CBC & Chem 7: 03/31/20 12:29 04/03/20 04:37 Labs: Laboratory Last Values WBC 6.8 K/mm3 (4.5-11.0) 03/31/20 12:29 RBC 3.89 M/mm3 (3.65-5.03) 03/31/20 12:29 Hgb 11.3 gm/dl (11.8-15.2) L 03/31/20 12:29 Hct 34.4 % (35.5-45.6) L 03/31/20 12:29 MCV 88 fl (84-94) 03/31/20 12:29 MCH 29 pg (28-32) 03/31/20 12:29 MCHC 33 % (32-34) 03/31/20 12:29 RDW 14.8 % (13.2-15.2) 03/31/20 12:29 Plt Count 108 K/mm3 (140-440) L 03/31/20 12:29 Lymph % (Auto) 16.2 % (13.4-35.0) 03/31/20 12:29 [place]ting[place] % (Auto) 8.1 % (0.0-7.3) H 03/31/20 12:29 Eos % (Auto) 2.1 % (0.0-4.3) 03/31/20 12: Baso % (Auto) 1.0 % (0.0-1.8) 03/31/20 12: Lymph # (Auto) 1.1 K/mm3 (1.2-5.4) L 03/31/20 12:29 [place]er # (Auto) 0.6 K/mm3 (0.0-0.8) 03/31/20 12: Eos # (Auto) 0.1 K/mm3 (0.0-0.4) 03/31/20 12:29 Baso # (Auto) 0.1 K/mm3 (0.0-0.1) 03/31/20 12:29 Seg Neutrophils % 72.6 % (40.0-70.0) H 03/31/20 12:29 Seg Neutrophils # 5.0 K/mm3 (1.8-7.7) 03/31/20 12:29 Sodium 143 mmol/L (137-145) 04/03/20 04:37 Potassium 3.6 mmol/L (3.6-5.0) 04/03/20 04:37 Chloride 103.8 mmol/L (98-107) 04/03/20 04:37 Carbon Dioxide 27 mmol/L (22-30) 04/03/20 04:37 Anion Gap 16 mmol/L 04/03/20 04:37 BUN 14 mg/dL (9-20) 04/03/20 04:37 Creatinine 0.8 mg/dL (0.8-1.3) 04/03/20 04:37 Estimated GFR > 60 ml/min 04/03/20 04:37 BUN/Creatinine Ratio 18 % 04/03/20 04:37 Glucose 86 mg/dL (75-100) 04/03/20 04:37 Calcium 8.8 mg/dL (8.4-10.2) 04/03/20 04:37 Magnesium 2.20 mg/dL (1.7-2.3) 04/02/20 10:03 Troponin T < 0.010 ng/mL (0.00-0.029) 03/31/20 18:57 NT-Pro-B Natriuret Pep 7345 pg/mL (0-900) H 03/31/20 12:29 TSH 0.466 mlU/mL (0.270-4.200) 03/31/20 18:57 Free T4 1.80 ng/dL (0.76-1.46) H 03/31/20 18:57 Urine Color Straw (Yellow) 04/01/20 22:00 Urine Turbidity Slightly-cloudy (Clear) 04/01/20 22:00 Urine pH 6.0 (5.0-7.0) 04/01/20 22:00 Ur Specific [place]geon 1.009 (1.003-1.030) 04/01/20 22:00 Urine Protein <15 mg/dl mg/dL (Negative) 04/01/20 22:00 Urine Glucose (UA) Neg mg/dL (Negative) 04/01/20 22:00 Urine Ketones Neg mg/dL (Negative) 04/01/20 22:00 Urine Blood Lg (Negative) 04/01/20 22:00 Urine Nitrite Neg (Negative) 04/01/20 22:00 Urine Bilirubin Neg (Negative) 04/01/20 22:00 Urine Urobilinogen < 2.0 mg/dL (<2.0) 04/01/20 22:00 Ur Leukocyte Esterase Lg (Negative) 04/01/20 22:00 Urine WBC (Auto) 86.0 /HPF (0.0-6.0) H 04/01/20 22:00 Urine RBC (Auto) > 182.0 /HPF (0.0-6.0) 04/01/20 22:00 Urine Mucus Few /HPF 04/01/20 22:00 Microbiology: Microbiology 04/01/20 22:00 Urine,Clean Catch Urine Culture - Preliminary Moran/IV: Voiding Method Urinal IV Catheter Type [Left Hand] INT / Saline Lock Active Medications - Current Medications Current Medications: Generic Name Dose Route Start Last Admin Trade Name Freq PRN Reason Stop Dose Admin Acetaminophen 650 mg 03/31/20 17:27 04/01/20 15:10 Tylenol PO 650 mg Q4H PRN Administration Pain MILD(1-3)/Fever >100.5/RAMIREZ Albuterol 2.5 mg 03/31/20 17:27 Proventil IH Q4HRT PRN Shortness Of Breath Apixaban 5 mg 04/01/20 22:00 04/03/20 09:14 Eliquis PO 5 mg Q12HR ERIC Administration Protocol Aspirin 81 mg 04/02/20 10:00 04/03/20 09:15 Baby Aspirin PO 81 mg QDAY ERIC Administration Atorvastatin Calcium 40 mg 04/01/20 22:00 04/02/20 22:41 Lipitor PO 40 mg QHS ERIC Administration Digoxin 0.25 mg 04/03/20 12:00 04/03/20 12:52 Lanoxin IV 04/04/20 06:01 0.25 mg Q6HR ERIC Administration Furosemide 20 mg 03/31/20 18:00 04/03/20 06:24 Lasix IV 20 mg BID@0600,1800 ERIC Administration Ceftriaxone Sodium 1 gm in 50 mls @ 100 mls/hr 04/02/20 01:00 04/03/20 09:14 Rocephin/Ns 1 Gm/50 Ml IV 04/07/20 10:29 100 mls/hr Q24HR ERIC Administration Protocol Metoprolol Succinate 50 mg 04/02/20 16:00 04/03/20 09:14 Metoprolol Xl PO 50 mg QDAY ERIC Administration Ondansetron HCl 4 mg 03/31/20 17:27 Zofran IV Q8H PRN Nausea And Vomiting Potassium Chloride 20 meq 04/02/20 10:00 04/03/20 09:14 K-Dur PO 20 meq QDAY ERIC Administration Sodium Chloride 10 ml 03/31/20 22:00 04/03/20 09:16 Sodium Chloride Flush Syringe 10 Ml IV 10 ml BID ERIC Administration Sodium Chloride 10 ml 03/31/20 17:27 04/03/20 06:24 Sodium Chloride Flush Syringe 10 Ml IV 10 ml PRN PRN Administration LINE FLUSH
[2020-04-04 05:38] LABS: Blood Urea Nitrogen 15 mg/dL (9-20); Calcium 8.7 mg/dL (8.4-10.2); Hemolysis Index 39
[2020-04-04 05:46] LABS: BUN/Creatinine Ratio 21
[2020-04-04] MEDS: DIGOXIN 0.5 MG/2 ML INJ IV SCH ×2 (05:59)
[2020-04-04] MEDS: FUROSEMIDE 20 MG/2 ML INJ IV SCH (05:59)
[2020-04-04] MEDS: METOPROLOL SUCCINATE XL 50 MG TAB PO SCH (09:34)
[2020-04-04] MEDS: APIXABAN 5 MG TAB PO SCH (09:34)
[2020-04-04] MEDS: ASPIRIN 81 MG TAB CHEW PO SCH (09:35)
[2020-04-04] MEDS: POTASSIUM CHLORIDE ER 20 MEQ TAB PO SCH ×4 (09:35→10:06)
[2020-04-04] MEDS: cefTRIAXone/NS 1 GM/50 ML 1 GM/50 ML BAG IV SCH (09:35)
--- NOTE | 2020-04-04 09:41 | Discharge Summary ---
Providers - Providers Date of Admission: 03/31/20 17:27 Attending physician: SHORTY FISCHER 03/31/20 16:40 Consult to Cardiology [CONS] Stat Consulting Provider: ZARIA ORTIZ Reason For Exam: CHF Primary care physician: JOSE L DAMON Hospitalization Pertinent studies: 03/31 CXR: . Hazy right middle and right lower lobe parenchymal opacification concerning for probable developing infectious process. Hospital course: 84 YO Male with CHF, CVA, CAD S/P CABG, DVT presented on 03/31 for shortness of breath over the past 1 week with persistently worsening symptoms over the same timeframe, orthopnea, paroxysmal nocturnal dyspnea, lower extremity edema, decreased exercise tolerance, subjective weight gain, as well as dyspnea with meals. Patient found to have laboratory findings as well as clinical findings consistent with CHF decompensation. Cardiology was consulted in the emergency department. On 04/01 he had hypokalemia which was repleted. He will be discharged on bisoprolol XL and Lasix. He will be discharged with a 3-day course of antibiotic therapy to complete a 7-day course for urinary tract infection. He will need to follow-up outpatient with cardiology and his primary care physician. He is set for a follow-up appointment in the [place] office of [facility] for BMP on 04/14/2020 @1030 AM and a follow-up appointment with Dr. Ortiz on 04/07/2020 at 10:00 AM. (1) Acute on chronic HFrEF (heart failure with reduced ejection fraction) Current Visit: Yes Status: Acute Plan to address problem: 03/28/2020 echo shows EF 15%, grade III diastolic dysfxn, severe MR, severe TR. 03/31 proBNP: 7345 04/03 noted with digoxin Cardiology consulted Continue Toprol-XL and Lasix Follow-up with cardiology outpatient Follow up in our [place] office with Dr. Ortiz on 04/07/2020 @ 10:00AM. -Follow up in our [place] office for BMP on 04/14/2020 @ 10:30AM. (2) UTI (urinary tract infection) Current Visit: Yes Status: Acute Plan to address problem: 04/01 UA shows leukocyte esterase and pyuria 04/01 urine culture with mixed skin glenn He will be discharged with p.o. antibiotics for 3 days to complete a 7-day treatment course (3) HTN (hypertension) Current Visit: Yes Status: Chronic Qualifiers: Hypertension type: essential hypertension Qualified Code(s): I10 - Essential (primary) hypertension Plan to address problem: Continue Toprol, Lasix, hold home lisinopril in the setting of borderline BPs Blood pressure monitor per primary care physician Follow-up with your primary care physician within 1 to 2 weeks of discharge (4) Goiter Current Visit: Yes Status: Suspected Plan to address problem: 03/31 TSH 0.4, T4 1.8 Follow-up outpatient for evaluation (5) Cerebral atherosclerosis Current Visit: Yes Status: Acute Plan to address problem: Continue aspirin and statin therapy (6) CAD (coronary artery disease) Current Visit: Yes Status: Chronic Qualifiers: Associated angina: without angina Plan to address problem: Continue statin therapy (7) H/O deep venous thrombosis Current Visit: Yes Status: Chronic Plan to address problem: Continue Eliquis Disposition: DC-01 TO HOME OR SELFCARE Time spent for discharge: 35 Core Measure Documentation - Palliative Care Palliative Care/ Comfort Measures: Not Applicable - Core Measures Any of the following diagnoses?: heart failure - Heart Failure Discharge Requirements YAJAIRA/ARB for LVSD if EF <40%: No Reason for no YAJAIRA/ARB: Hypotension Beta neto at discharge: Yes Exam - Constitutional Vitals: Temp Pulse Resp BP Pulse Ox 98.0 F 104 H 20 101/54 100 04/04/20 07:22 04/04/20 09:34 04/04/20 07:22 04/04/20 09:34 04/04/20 07:22 General appearance: Present: no acute distress - EENT Eyes: Present: PERRL, EOM intact ENT: clear oral mucosa, hearing decreased - Neck Neck: Present: supple, normal ROM - Respiratory Respiratory effort: normal Respiratory: bilateral: rhonchi - Cardiovascular Rhythm: regular Heart Sounds: Present: S1 & S2 - Extremities Extremities: no ischemia, pulses intact, pulses symmetrical, normal temperature, normal color, Full ROM Extremity abnormal: edema (+1/+2 pitting to B ankles) Peripheral Pulses: within normal limits - Abdominal General gastrointestinal: Present: soft, non-tender, non-distended, normal bowel sounds - Integumentary Integumentary: Present: clear, warm, dry - Musculoskeletal Musculoskeletal: strength equal bilaterally - Psychiatric Psychiatric: appropriate mood/affect, cooperative - Neurologic Neurologic: CNII-XII intact, no focal deficits, moves all extremities Plan Activity: advance as tolerated Diet: low fat, low salt Special Instructions: record daily weights, record daily BP diary Additional Instructions: Contact your primary care physician or with report to the nearest emergency department if experience worsening symptoms. Follow-up with your primary care physician within 1 to 2 weeks of discharge. And follow- up with cardiology in the [place] office this week. Follow up with: JOSE L DAMON NP [Primary Care Provider] - 7 Days [facility] [Provider Group] - 7 Days Prescriptions: RX: AtorvaSTATin [Lipitor] 40 mg PO QHS #30 tablet RX: Aspirin [Aspirin BABY CHEW TAB] 81 mg PO QDAY #30 tab.chew Ciprofloxacin HCl [Ciprofloxacin TAB] 500 mg PO Q12HR 3 Days #6 tab Furosemide [Lasix TAB] 40 mg PO QDAY #30 tablet RX: Metoprolol Xl [Metoprolol SUCCINATE ER TAB] 50 mg PO BID #60 tablet
--- NOTE | 2020-04-04 10:36 | Progress Note ---
Assessment and Plan Currently stable cardiac status. Pt appears to be nearing/at euvolemia. Pt may discharge home from cardiology standpoint today. At discharge, recommend PO lasix 40mg daily. Optimize HR - increase Toprol XL to 50mg BID. No ACEI/ARB in setting of borderline hypotension. Will plan to address AICD candidacy as OP. Assessment and plan d/w pt at bedside and pt's daughter via telephone. All questions answered and concerns addressed. Follow up in our [place] office for BMP on 04/07/2020 @ 1:00PM. Follow up in our [place] office with Dr. Ortiz on 04/12/2020 @ 10:15AM. Pt seen in conjunction with Dr. Trejo, who agrees with the assessment and plan of care. - Patient Problems (1) Acute on chronic HFrEF (heart failure with reduced ejection fraction) Current Visit: Yes Status: Acute (2) Paroxysmal SVT (supraventricular tachycardia) Current Visit: Yes Status: Acute Plan to address problem: Asymptomatic (3) Ischemic cardiomyopathy Current Visit: Yes Status: Chronic (4) Severe mitral regurgitation Current Visit: Yes Status: Chronic (5) Severe tricuspid regurgitation Current Visit: Yes Status: Chronic (6) CAD (coronary artery disease) Current Visit: Yes Status: Chronic Qualifiers: Associated angina: without angina (7) S/P CABG (coronary artery bypass graft) Current Visit: Yes Status: Chronic (8) HTN (hypertension) Current Visit: Yes Status: Chronic Qualifiers: Hypertension type: essential hypertension Qualified Code(s): I10 - Essential (primary) hypertension (9) HLD (hyperlipidemia) Current Visit: Yes Status: Chronic Qualifiers: Hyperlipidemia type: mixed hyperlipidemia Qualified Code(s): E78.2 - Mixed hyperlipidemia (10) Hypothyroidism Current Visit: Yes Status: Chronic (11) Goiter Current Visit: Yes Status: Suspected Plan to address problem: Plan for surgical intervention as an outpatient (12) H/O: CVA (cerebrovascular accident) Current Visit: Yes Status: Chronic (13) H/O deep venous thrombosis Current Visit: Yes Status: Chronic Plan to address problem: on Eliquis Subjective Date of service: 04/04/20 Principal diagnosis: A/C HFrEF Interval history: pt resting in bed, states he is feeling better, BLE swelling nearly resolved. tele reviewed - in ST HR 100s. Objective Last Vital Signs Temp 98.0 F 04/04/20 07:22 Pulse 104 H 04/04/20 09:34 Resp 20 04/04/20 07:22 BP 101/54 04/04/20 09:34 Pulse Ox 100 04/04/20 07:22 - Physical Examination General: No Apparent Distress HEENT: Positive: EOMI, Normocephaly, Mucus Membranes Moist Neck: Positive: neck supple, trachea midline Cardiac: Positive: Reg Rate and Rhythm, S1/S2 Lungs: Positive: Decreased Breath Sounds Neuro: Positive: Grossly Intact Abdomen: Positive: Soft, Active Bowel Sounds. Negative: Tender Skin: Negative: Rash Musculoskeletal: No Pain Extremities: Present: upper extr. pulses, lower extr. pulses, +1 Edema (BLE) - Labs and Meds Comprehensive Metabolic Panel 04/04/20 Range/Units 04:21 Sodium 142 (137-145) mmol/L Potassium 3.8 (3.6-5.0) mmol/L Chloride 103.6 (98-107) mmol/L Carbon Dioxide 24 (22-30) mmol/L BUN 15 (9-20) mg/dL Creatinine 0.7 L (0.8-1.3) mg/dL Glucose 78 (75-100) mg/dL Calcium 8.7 (8.4-10.2) mg/dL - Imaging and Cardiology EKG: report reviewed, image reviewed Echo: report reviewed (03/28/2020 - EF 15%, grade III diastolic dysfxn, severe MR, severe TR) - EKG Sinus rhythms and dysrhythmias: sinus rhythm Ventricular dysrhythmias: ventricular premature com Repolarization changes or abnormalities: nonspecific abnormality, ST segment, and/or T wave
[2020-04-04 13:22] VITALS: BP 149/91
--- NOTE | 2020-04-04 14:37 | Event Note ---
Date: 04/04/20 Follow-up appts changed to the following: F/u in our [place] office with Dr. Ortiz on 04/07/2020 @ 10:00AM. F/u in our [place] office for [facility] on 04/14/2020 @ 10:30AM. Alejandro DAMON NP / DR. LANDRY
== END 2020-04-04 14:21 | disposition home or self-care (01) | DRG 292 ==
LOC: ED 11:57 → 4A 17:27
PROVIDERS: ADMIT Internal Medicine; ATTEND Internal Medicine
DX: I11.0 Hypertensive heart disease with heart failure (principal); N39.0 Urinary tract infection, site not specified; I47.1 Supraventricular tachycardia; I50.23 Acute on chronic systolic (congestive) heart failure; I67.2 Cerebral atherosclerosis; I25.10 Atherosclerotic heart disease of native coronary artery without angina pectoris; E87.6 Hypokalemia; Z86.73 Personal history of transient ischemic attack (TIA), and cerebral infarction without residual deficits; Z95.1 Presence of aortocoronary bypass graft; E03.9 Hypothyroidism, unspecified; I25.5 Ischemic cardiomyopathy; I08.1 Rheumatic disorders of both mitral and tricuspid valves
CPT/HCPCS: 36415; 71046; 80048; 81001; 83735; 83880; 84439; 84443; 84484; 85025; 87086; 93005; 96361; 96365; 96367; G0378; A9270-GY; J0696; J1160; J1940